=== PATIENT | male | born 1945 | race Caucasian/White ===

== ENCOUNTER 2016-09-23 05:19 | Inpatient (IN) | payer OTHER ==
[~2016-09-23] VITALS: Ht 172.7 cm; Wt 103.4 kg
[~2016-09-23 05:19] MED LIST: ATENOLOL50 M1 PO; FLOMAX0.4 M1 PO; HYDROCHLOROTH12.5 M2 PO; LOSARTAN POTAS100 M1 PO; MELOXICAM15 M1 PO; SIMVASTATIN20 M2 PO
--- NOTE | 2016-09-23 12:16 | Admission Core Measures ---
Admission Meds I reviewed the following Meds: Current Medications Sig/Hermilo Start time Last Medication Dose Stop Time Status Admin Acetaminophen 975 MG ONCE 09/23 0000 NR (Tylenol) 09/23 2358 Cefazolin Sodium 2,000 MG ONCE 09/23 0000 NR (Kefzol-Ancef Inj) 09/23 2358 Oxycodone HCl 10 MG ONCE 09/23 0000 NR (Roxicodone) 09/23 2358 Acute Coronary Syndrome Inclusion Criteria ACS Diagnosis No Inpatient Core Measures LDL Reminder: If No, please order W/I first 24hr of stay Congestive Heart Failure Inclusion Criteria CHF Diagnosis No Cerebrovascular accident Inclusion Criteria CVA/TIA Diagnosis No Inpatient Core Measures Bedside Swallow Eval Reminder: If BSE failed, place ST order Antithrombotic Reminder: Order Antithrombotic Medication by end of day 2 Antithrombotic Reminder: Document Reason Antithrombotic Not ordered by end of day 2 AFIB/Flutter Reminder: If Present, add to problem list AFIB/Flutter Reminder: Order Anticoag Medication for pts with AFIB/Flutter Atherosclerosis Reminder: If Present, add to problem list LDL Reminder: If No, please order W/I first 24hr of stay PT Order Reminder: If No, please order Venous thromboembolism Inpatient Core Measures VTE Risk Factors: Age > 40, Surgery No [facility] VTE prophylaxis d/t No contraindications No VTE Pharm Prophylaxis d/t No contraindications Inclusion Criteria - Per Current guidelines, there needs to be overlap - treatment for the first 5 days of Warfarin therapy. - Parenteral Anticoagulation (IV or SC) needs to be - given along with Warfarin therapy. VTE Diagnosis No VTE Type NONE VTE Confirmed by (Test) NONE Problem List As ranked by this Provider includes Assessment & Plan 1. Status post total hip replacement, right HOME MEDS Home Med List Atenolol 50 MG TABLET 1 TAB PO DAILY HTN (Reported) Hydrochlorothiazide 12.5 MG TABLET 1 TAB PO DAILY HTN (Reported) Losartan Potassium 100 MG TABLET 1 TAB PO DAILY HTN (Reported) Meloxicam 15 MG TABLET 1 TAB PO DAILY PAIN (Reported) Simvastatin (Simvastatin*) 20 MG TABLET 1 TAB PO QPM CHOLESTEROL (Reported) Tamsulosin HCl (Flomax) 0.4 MG CAP.ER.24H 1 CAP PO DAILY BPH (Reported)
[2016-09-23] MEDS ORDERED: MS CONTIN15 M2 PO (12:53)
[2016-09-23] MEDS ORDERED: DILAUDID2 M1 PO (12:53)
[2016-09-23] MEDS ORDERED: COLACE100 M1 PO (12:53)
[2016-09-23] MEDS ORDERED: MIRALAX17 G1 PO (12:53)
[2016-09-23] MEDS ORDERED: ASPIRIN325 M2 PO (12:53)
--- NOTE | 2016-09-23 12:57 | Patient Discharge Instructions ---
Discharge Instructions General Discharge Information You were seen/treated for: Right hip degenerative joint disease You had these procedures: Right total hip arthroplasty Watch for these problems: Significantly increased pain, difficulty ambulating, or temperatures over 101 Increased redness or drainage from incision No bath, but you may shower: Yes Other wound care: Daily dry dressing change Special Instructions: See preprinted information booklet Diet Continue normal diet: Yes Activity Activity Self Limited: Yes Other activity limits: Ambulate using a walker as instructed by physical therapy No driving or operating heavy machinery until okay with your surgeon and off all pain medications Acute Coronary Syndrome Inclusion Criteria At DC or during hospital stay patient has or had the following: ACS DIAGNOSIS No Discharge Core Measures Meds if any: Prescribed or Continued at Discharge Meds if any: NOT Prescribed or Continued at Discharge Congestive Heart Failure Inclusion Criteria At DC or during hospital stay patient has or had the following: CHF DIAGNOSIS No Discharge Core Measures Meds if any: Prescribed or Continued at Discharge Meds if any: NOT Prescribed or Continued at Discharge Cerebrovascular accident Inclusion Criteria At DC or during hospital stay patient has or had the following: CVA/TIA Diagnosis No Discharge Core Measures Meds if any: Prescribed or Continued at Discharge Meds if any: NOT Prescribed or Continued at Discharge Venous thromboembolism Inclusion Criteria VTE Diagnosis No VTE Type NONE VTE Confirmed by (Test) NONE Discharge Core Measures - Per Current guidelines, there needs to be overlap - treatment for the first 5 days of Warfarin therapy. - If discharged on Warfarin prior to 5 days of - overlap therapy, the patient will need to be - assessed for post discharge needs including - *Post discharge parental anticoagulation - *Warfarin and/or parental anticoagulation education - *Follow up date to check INR post discharge At least 5 days overlap therapy as Inpatient No Meds if any: Prescribed or Continued at Discharge Note: Overlap Therapy is Warfarin and Anticoagulant Meds if any: NOT Prescribed or Continued at Discharge
--- NOTE | 2016-09-23 12:59 | Surg Short-stay <48hrs Dis Sum ---
Visit Information Visit Dates Admission Date: 09/23/16 Discharge Date: 09/24/16 Surgical Short Stay DC Summary Admission Diagnosis: Right hip degenerative joint disease Final Diagnosis: Same Procedure(s): Right total hip arthroplasty Summary/Significant Findings: The patient was admitted on 09/23/2016. He is brought to the operating theater where he underwent a right total hip arthroplasty. Postoperatively the patient progressed as expected, his pain was under adequate control, and he ambulated safely with physical therapy. The patient was discharged with an uneventful hospital course Condition at Discharge: Stable Discharge Disposition: home health services Discharge instructions provided to patient/family: Yes Post discharge follow-up plan: Call the office to be seen in 6 weeks or earlier if needed
--- NOTE | 2016-09-23 16:59 | RADIOLOGY REPORT ---
EXAMINATION: XR HIP, RIGHT CLINICAL INFORMATION: Total hip replacement. COMPARISON: None TECHNIQUE: Two views of the right hip. FINDINGS: The components of the total hip arthroplasty are in their expected positions. The femoral head prosthesis is well centered within the acetabular cup which has estimated anteversion of 25 degrees and lateral version of approximately 42 degrees. The femoral stem is well centered within the medullary cavity of the proximal femoral diaphysis. No periprosthetic fracture. Drainage tube is noted within the hip. IMPRESSION: Satisfactory position and alignment of components of the total hip arthroplasty. No acute periprosthetic fracture.
--- NOTE | 2016-09-23 17:22 | PN- Orthopedic ---
Subjective Subjective: POST-OP NOTE: No complaints. Currently in pacu. Reports "numb" due to effects of spinal, but starting to feel "tingling". Tolerating ice chips. No nausea. Not yet out of bed. Due to void this evening. No dizziness. No shortness of breath. No chest pains. Awaiting transfer upstairs to 204. Objective Vital Signs and I&Os vitals in pacu stable Physical Exam: General - alert & oriented x 3. comfortable. no acute distress. Lungs - clear bilaterally. no w/r/r. Cardiac - s1s2. Abdomen - soft. nontender. Extremities - warm bilaterally. no c/c/e. right thigh dressing c/d/i. hemovac drain in place (50 mls emptied in PACU). unable to assess distal motor / sensory function due to effects of spinal. Current Medications: Current Medications Sig/Hermilo Start time Last Medication Dose Route Stop Time Status Admin Acetaminophen 0 .STK-MED ONE 09/23 1132 DC PO Acetaminophen 975 MG ONCE 09/23 0000 NR PO 09/23 235 Cefazolin Sodium 2,000 MG ONCE 09/23 0000 NR IV 09/23 235 Oxycodone HCl 0 .STK-MED ONE 09/23 1133 DC PO Oxycodone HCl 10 MG ONCE 09/23 0000 NR PO 09/23 2359 Assessment/Plan Assessment/Plan This 71 year old white male is POD#0 s/p right total hip replacement, anterior approach advance diet as tolerated guero-operative ancef x 2 doses asa bid - dvt ppx home meds ordered, including beta vel and flomax due to void this evening monitor hemovac drain overnight, likely remove in the morning f/u am labs PT eval in am, wbat monitor return of sensation / motor function s/p spinal will d/w Core Measures/Miscellaneous Venous Thromboembolism VTE Risk Factors: Age > 40, Surgery VTE Contraindications: No Contraindications VTE Diagnosis: No VTE Type: NONE VTE Confirmed by (Test): NONE Beta Vel Is Beta Vel a Home Med? Yes If Yes, Was This Ordered Today? Yes Antibiotics Is Patient on Antibiotics? Yes If Yes: prophylaxis
[2016-09-23 18:50] VITALS: BP 123/88
[2016-09-23 19:00] VITALS: BP 123/88
--- NOTE | 2016-09-23 19:13 | Operative Report ---
Operative/Inv Procedure Report Surgery Date: 09/23/16 Name of Procedure: Right total hip replacement Pre-Operative Diagnosis: Primary right hip DJD Post-Operative Diagnosis: Same Estimated Blood Loss: 250 Surgeon/Director Of Quality: ANNALISA GONZALES,ANA LAURA Urena Anesthesia: block Operative/Procedure Note Note: Description of Procedure: The patient was taken to the operating room and positively identified. After induction of spinal anesthesia and administration of appropriate pre-operative antibiotics, the patient was positioned supine on the operating room table and all bony prominences were well padded. After performing a surgical timeout, the right lower extremity was prepped and draped in the usual sterile fashion. A direct anterior approach was made to the right hip. The incision was carried sharply through superficial soft tissues to the level of the fascia. Meticulous hemostasis was maintained with Bovie electocautery. The fascia over the tensor fascia kuldip muscle was opened sharply and the interval between the TFL and the sartorius was entered bluntly taking care to stay lateral to the lateral femoral cutaneous nerve. Retractors were placed around the femoral neck and the pericapsular fat was identified. The ascending branches of the lateral femoral circumflex vessels were identified and carefully coagulated. The pericapsular fat and anterior capsule were then resected. A napkin ring osteotomy was performed and the femoral head was removed without difficulty. Attention was then turned to the acetabulum. After appropriate placement of retractors, the acetabulum was exposed. Soft tissue was cleaned from the acetabular margin and notch. Overhanging osteophytes were removed and the teardrop was exposed. The acetabulum was then sequentially reamed to accept a 60 mm Tiffany Tritanium hemispherical solid back shell. This was impacted into place in the appropriate position and fitted with a 36 mm Trident X3 zero degree polyethylene insert. Attention was then turned to the femur. After performing the appropriate ligament releases, the proximal femur was exposed. It was then sequentially broached to accept a size 5 [place] Accolade 2 stem. This was trialed for leg length and stability. The trial component was removed and the final component was impacted into place. The trunnion was carefully cleaned and fit with a 36 mm, +5 Biolox delta ceramic femoral head. The hip was reduced and put through a full range of motion and found to be stable. The articular space was then irrigated with sterile saline. The periarticular soft tissues were infilitrated with Marcaine. The fascial layer was closed with interrupted #1 vicryl suture and the skin was re-approximated with interrupted 2 -0 vicryl. The skin was closed with a running 3-0 V-Lock suture. Steri-strips and a sterile dressing were applied. The patient was awakened and taken to the recovery room in satisfactory condition.
--- NOTE | 2016-09-23 19:44 | NUR ---
1849 PATIENT ARRIVED TO FLOOR. ALERT AND ORIENTED X 3. ON ROOM AIR. LUNGS CLEAR. DENIES SHORTNESS OF BREATH VITAL SIGNS STABLE. DENIES CHEST PAIN. + PULSES. SLIGHT NUMBNESS TO FEET ABDOMEN FIRM AND DISTENDED. NO DISCOMFORT AT THIS TIME BED LOW AND LOCKED. CALL LIGHT WITHIN REACH WILL CONTINUE TO MONITOR
[2016-09-23 21:00] VITALS: BP 132/94
--- NOTE | 2016-09-23 22:20 | NUR ---
PT TRANSFERRED FROM B SIDE TO A SIDE FOR PRIVATE ROOM. PT A/O X3. PT ON RA. VSS. R HIP DSD . HEMOVAC TO R THIGH. DURACOLD TO R HIP. ALPS ON. CALL ROSE WITHIN REACH. WILL MONITOR
[2016-09-23 22:26] VITALS: BP 110/70
[2016-09-24] VITALS: BP 110/70
[2016-09-24 00:30] VITALS: BP 118/78
[2016-09-24 04:00] VITALS: BP 110/76
[2016-09-24 04:42] VITALS: BP 110/76
[2016-09-24 08:30] VITALS: BP 130/94
[2016-09-24 08:42] LABS: ABSOLUTE BASOPHIL COUNT 0 /CUMM (0.0-0.2); ABSOLUTE EOSINOPHIL COUNT 0 /CUMM (0.0-0.7); ABSOLUTE LYMPH COUNT 0.6 /CUMM (1.2-3.4); ABSOLUTE MONOCYTE COUNT 0.8 /CUMM (0.10-0.60); BASOPHIL % 0.2 % (0.0-2.0); EOSINOPHIL % 0.5 % (0-5); GRANULOCYTE % 80.2 % (42.2-75.2); HEMATOCRIT 38.2 % (42-52); MEAN CORPUSCULAR HGB CONC 33.7 G/DL (33.0-37.0); MEAN CORPUSCULAR VOLUME 94.8 FL (80.0-94.0); MEAN PLATELET VOLUME 8.6 FL (7.4-10.4); PLATELET COUNT 120 /CUMM (130-400); RBC DISTRIBUTION WIDTH 13.1 % (11.5-14.5); RED BLOOD CELL CT 4.03 /CUMM (4.70-6.10); WHITE BLOOD CELL COUNT 7.5 /CUMM (4.8-10.8)
--- NOTE | 2016-09-24 08:45 | PN- Orthopedic ---
Subjective Subjective: The patient was seen this morning postoperatively day #1. He complains of some moderate incisional and distal thigh discomfort. He reports that the pain medications to help and his pain is adequately managed at the current time. He had no other complaints. Objective Vital Signs and I&Os Vital Signs Date Time Temp Pulse Resp B/P B/P Pulse O2 O2 Flow FiO2 Mean Ox Delivery Rate 09/24 0830 97.4 83 20 130/94 95 Room Air / 0442 98.5 67 20 110/76 95 Room Air / 0400 98.5 67 20 110/76 /15 0030 97.7 78 20 118/78 94 Room Air / 0000 98.1 91 20 110/70 /14 2226 98.1 91 20 110/70 96 / 2135 Room Air 09/23 2100 97.6 86 20 132/94 /14 2100 97.6 86 20 132/94 96 Room Air 09/23 1900 98.0 72 20 123/88 / 1850 98.0 72 20 123/88 95 Room Air Intake & Output 09/24 1600 09/24 0800 /15 0000 /14 1600 /14 0800 /14 0000 Intake Total 1060 420 Output Total 460 725 Balance 600 -305 Intake, IV 700 100 Intake, Oral 360 320 Output, 60 100 Drainage Output, Urine 400 625 Patient 228 lb Weight Physical Exam: Gen.: Alert and in no obvious distress Skin: Warm and dry Extremities: Bilateral lower extremities are warm without calf tenderness or significant edema. Motor and sensory are intact. Surgical incision is blood- tinged at the inferior aspect. There is a drain 1 holding suction with serosanguineous drainage in the bulb. Right thigh compartments remain soft. Assessment/Plan Assessment/Plan Assessment: 71-year-old male status post right total hip arthroplasty postoperative day #1. The patient is progressing as expected and his pain is under adequate control. Plan: Out of bed and ambulate with physical therapy Hep-Lock IV fluids and DC drain Follow-up morning laboratory studies Continue current pain regiment GI and DVT prophylaxis Discharge home later today after clearing PT Core Measures/Miscellaneous Venous Thromboembolism VTE Risk Factors: Age > 40, Surgery VTE Contraindications: No Contraindications VTE Diagnosis: No VTE Type: NONE VTE Confirmed by (Test): NONE Beta Vel Is Beta Vel a Home Med? Yes If Yes, Was This Ordered Today? Yes Antibiotics Is Patient on Antibiotics? No
[2016-09-24 14:41] VITALS: BP 108/80
--- NOTE | 2016-09-24 16:25 | NUR ---
PT HAD INCREASED BLEEDING TO R HIP FOLLOWING AMBULATION WITH PT. DRESSING SEEN AND CHANGED BY PA AT 0900. AT 1245, DRESSING LEAKING AT BOTTOM WITH BLOOD. PA CALLED TO BEDSIDE. CHANGED DRESSING AND APPLIED SRIRAM WRAP TO APPLY PRESSURE TO SITE. THINKS BLOOD BUILT UP BEHIND HEMOVAC AND WILL STOP. AT 1500, BLEEDING HAD STOPPED AND DRESSING CLEAN/INTACT. PT STATED HE WAS READY FOR DISCHARGE. SEEN BY PA AND DISCHARGE ORDER PLACED. PT SENT HOME WITH DRESSING SUPPLIES AND INSTRUCTIONS FOR HOME CARE. BOTH PT AND VERBALIZED UNDERSTANDING.
== END 2016-09-24 16:21 | disposition home health service (06) | DRG 470 ==
LOC: SDA 05:19 → ENRESERV 16:57 → ENTRNSPT 18:15 → 2NB 18:35 → CMPTRNSPT 18:59 → 2NA 22:10
PROVIDERS: Physician Assistant Surgical; ADMIT Orthopaedic Surgery
PROC: 0SR904A Replacement of Right Hip Joint with Ceramic on Polyethylene Synthetic Substitute, Uncemented, Open Approach (ICD-10-PCS; principal; 2016-09-23)
DX: M16.11 Unilateral primary osteoarthritis, right hip (principal); K76.0 Fatty (change of) liver, not elsewhere classified; I10 Essential (primary) hypertension; N40.0 Benign prostatic hyperplasia without lower urinary tract symptoms; E78.5 Hyperlipidemia, unspecified; F10.10 Alcohol abuse, uncomplicated; M17.0 Bilateral primary osteoarthritis of knee
CPT/HCPCS: 2NAP; 73502-RT; 82436; 97110-GO; 97116-GO; 97161-GP; 97530-GO; J0131; J0690; J0735; J2405; J2550; J3490; J7042